=== PATIENT | male | born 1945 | race Caucasian/White ===

== ENCOUNTER → 2023-06-29 07:52 | Outpatient (CLI) | payer MEDICARE, OTHER, SELFPAY ==
[2023-06-29 08:56] LABS: Add Manual Diff / Slide Review NO; Basophils Absolute Auto 0 /uL (0-100); Basophils Percent Auto 0.9 % (0-2); Eosinophils Absolute Auto 200 /uL (0-450); Eosinophils Percent Auto 3.7 % (2-4); Hematocrit 40.2 % (41-53); Hemoglobin 13.8 g/dL (13.5-17.5); Lymphocytes Absolute Auto 1000 /uL (1100-4500); Mean Corpuscular HGB Conc 34.3 % (30-36); Mean Corpuscular Hemoglobin 31.1 PG (26-34); Mean Corpuscular Volume 90.7 fL (80-100); Monocytes Absolute Auto 600 /uL (0-900); Monocytes Percent Auto 11.8 % (3-14); Neutrophils Absolute Auto 3100 /uL (1500-7000); Neutrophils Percent Auto 63.6 % (50-75); Platelet Count 230 X10^3/uL (150-400); Red Blood Cell Count 4.43 X10^6/uL (4.5-5.9); Red Cell Distribution Width 13.7 % (11.6-14.8); White Blood Cell Count 4.9 X10^3/uL (4.5-11.0)
[2023-06-29 09:03] LABS: Hemoglobin A1C% w Est Avg Glu 5.5 % (4.0-6.0)
[2023-06-29 09:16] LABS: Alanine Aminotransferase 32 IU/L (<50); Albumin 4.1 g/dL (3.5-5.0); Albumin Globulin Ratio 1.5 (1.0-2.8); Alkaline Phosphatase 62 U/L (38-126); Aspartate Aminotransferase 32 IU/L (17-59); BUN Creatinine Ratio 18.6 (6-22); Bilirubin Total 0.8 mg/dL (0.2-1.3); Blood Urea Nitrogen 11 mg/dL (9-20); Calcium 8.7 mg/dL (8.4-10.2); Carbon Dioxide 22 mmol/L (22-32); Chloride 105 mmol/L (98-107); Cholesterol 149 mg/dL (140-199); Estimated Glomerular Filt Rate > 60 mL/min (>60); Globulin 2.7 g/dL (1.7-4.1); Glucose 106 mg/dL (80-110); HDL Cholesterol 50 mg/dL (40-60); HEMOLYSIS < 15 (0-50); LDL Cholesterol Calculated 81 mg/dL (<100); Magnesium 2.1 mg/dL (1.6-2.3); Potassium 3.8 mmol/L (3.4-5.1); Sodium 136 mmol/L (137-145); Total Protein 6.8 g/dL (6.3-8.2); Triglycerides 92 mg/dL (35-150)
== END ==
PROVIDERS: Referring Provider Internal Medicine Clinical Cardiac Electrophysiology; Visit Provider Internal Medicine Clinical Cardiac Electrophysiology
DX: E11.9 Type 2 diabetes mellitus without complications (principal); I10 Essential (primary) hypertension
CPT/HCPCS: 36415; 80053; 80061; 83036; 83735; 85025

== ENCOUNTER 2023-07-09 10:15 | Emergency (ER) | payer MEDICARE, OTHER, SELFPAY ==
[2023-07-09] VITALS (35 sets, daily range): BP systolic 95–151; BP diastolic 57–105; PULSE 59–137; RESP 12–26; TEMP 35.8; O2SAT 93–100; BMI 27.3
--- NOTE | 2023-07-09 10:20 | DI.RAD.S_ITS ---
PROCEDURE: XR CHEST 1V INDICATIONS: chest pain TECHNIQUE: One view of the chest was acquired. COMPARISON: None. FINDINGS: Surgical changes and devices: There is a leadless cardiac pacing moderate device. Lungs and pleura: Left basilar opacity may be pneumonia or atelectasis. No pleural effusions or pneumothorax. Mediastinum: Mediastinal contours appear normal. Heart size is normal. Bones and chest wall: No suspicious bony lesions. Overlying soft tissues appear unremarkable. IMPRESSION: Left basilar pneumonia or atelectasis. Dictated by: Chaparro Castelan M.D. on 07/09/2023 at 10:59 Approved by: Chaparro Castelan M.D. on 07/09/2023 at 11:01
[2023-07-09 10:41] LABS: Add Manual Diff / Slide Review NO; Basophils Absolute Auto 0 /uL (0-100); Basophils Percent Auto 0.6 % (0-2); Eosinophils Absolute Auto 200 /uL (0-450); Eosinophils Percent Auto 2.4 % (2-4); Hematocrit 46.6 % (41-53); Hemoglobin 16.1 g/dL (13.5-17.5); Lymphocytes Absolute Auto 1200 /uL (1100-4500); Lymphocytes Percent Auto 17.6 % (25-40); Mean Corpuscular HGB Conc 34.5 % (30-36); Mean Corpuscular Hemoglobin 31.6 PG (26-34); Mean Corpuscular Volume 91.6 fL (80-100); Monocytes Absolute Auto 700 /uL (0-900); Monocytes Percent Auto 10.6 % (3-14); Neutrophils Absolute Auto 4600 /uL (1500-7000); Neutrophils Percent Auto 68.8 % (50-75); Platelet Count 250 X10^3/uL (150-400); Red Blood Cell Count 5.09 X10^6/uL (4.5-5.9); Red Cell Distribution Width 13.9 % (11.6-14.8); White Blood Cell Count 6.6 X10^3/uL (4.5-11.0)
[2023-07-09 10:49] LABS: PTT Partial Thromboplastin Tim 35 SECONDS (26-36)
[2023-07-09 10:55] LABS: Alanine Aminotransferase 37 IU/L (<50); Albumin 4.7 g/dL (3.5-5.0); Albumin Globulin Ratio 1.6 (1.0-2.8); Alkaline Phosphatase 75 U/L (38-126); Aspartate Aminotransferase 37 IU/L (17-59); BUN Creatinine Ratio 17.4 (6-22); Blood Urea Nitrogen 12 mg/dL (9-20); Calcium 9.3 mg/dL (8.4-10.2); Carbon Dioxide 23 mmol/L (22-32); Chloride 105 mmol/L (98-107); Creatine Kinase 119 U/L (55-170); Estimated Glomerular Filt Rate > 60 mL/min (>60); Glucose 98 mg/dL (80-110); HEMOLYSIS 16 (0-50); Lipase 87 U/L (23-300); Magnesium 2.4 mg/dL (1.6-2.3); Potassium 4.1 mmol/L (3.4-5.1); Sodium 138 mmol/L (137-145); Total Protein 7.7 g/dL (6.3-8.2)
[2023-07-09 11:06] LABS: Troponin I 0.012 ng/mL (0.01-0.034)
[2023-07-09] MEDS: SODIUM CHLORIDE 0.9% 1,000 ML 1000 ML IV ×2 (14:00→16:01)
[2023-07-09 14:08] LABS: Appearance Urine UA CLEAR; Bilirubin Urine UA NEGATIVE (NEGATIVE); Color Urine UA YELLOW; Glucose Urine UA NEGATIVE (Negative); Ketones Urine UA NEGATIVE (NEGATIVE); Leukocyte Esterase Urine UA NEGATIVE (NEGATIVE); Nitrite Urine UA NEGATIVE (Negative); Occult Blood Urine UA NEGATIVE (Negative); Protein Urine UA NEGATIVE (Negative); Specific Gravity Urine UA <=1.005 (1.000-1.035); Urobilinogen Urine UA 0.2 E.U./dL (0.2); pH Urine UA 6.5 (4.5-8.0)
[2023-07-09 14:10] LABS: Bacteria Urine None Seen; Culture Indicated Urine Cult Not Indicated; RBC Urine None Seen (0-5/HPF); Squamous Epithelial Cell Urine None Seen (0-5/HPF); Urine Comments Microscopic Normal; WBC Urine None Seen (0-5/HPF)
--- NOTE | 2023-07-09 14:25 | ED_ITS ---
HPI - Arrhythmia/Palpitations General Chief Complaint: Arrhythmia/Palpitations Stated Complaint: afib since last night Time Seen by Provider: 07/09/23 13:57 Source: patient Mode of arrival: Ambulatory History of Present Illness HPI narrative: This is a 77-year-old male anticoagulated on apixaban daily for atrial fibrillation with history of hypertension, dyslipidemia, ulcerative colitis with complaint of atrial fibrillation since last night. Patient states he can feel it is irregular. He states his last episode was about 9 or 10 months ago they have typically been very short but he has had 1 prior cardioversion in the emergency department. He states he is felt lightheaded today. No syncope. No chest pain or pressure, no shortness of breath, no cold cough or congestion, no fevers or chills. No nausea or vomiting. No swelling in his extremities. No diarrhea, no issues with bowel movements, no dysuria urgency or frequency. Has not been having frequent episodes. His home medications are apixaban, amlodipine, atorvastatin, fluticasone, mesalamine, metoprolol and sildenafil. States he takes the amlodipine in the morning and his metoprolol in the evening. No known drug allergies. No tobacco, has a alcoholic drink every couple days, no illicit. No recent alcohol in the last few days. Primary care is Dr. Bullock in [place], his heel reducer as that [facility] Dr. Chavez but he splits his time between there and [place] where he sees a Dr. Watson. Patient notes he is had prior cardioversion no issues with anesthesia or sedation he does get he states colonoscopies fairly regularly. Related Data Home Medications Medication Instructions Recorded Confirmed amlodipine 5 mg tablet 5 mg PO DAILY 06/15/23 06/15/23 apixaban 5 mg tablet (Eliquis) 5 mg PO BID 06/15/23 06/15/23 atorvastatin 40 mg tablet 40 mg PO DAILY 06/15/23 06/15/23 fluticasone propionate 50 spray intranasal 06/15/23 06/15/23 mcg/actuation nasal spray,suspension mesalamine 1.2 gram tablet,delayed 2.4 g PO DAILY 06/15/23 06/15/23 release metoprolol succinate 25 mg 12.5 mg PO DAILY 06/15/23 06/15/23 tablet,extended release 24 hr sildenafil 100 mg tablet 0 mg PO 06/15/23 06/15/23 Allergies Allergy/AdvReac Type Severity Reaction Status Date / Time No Known Drug Allergies Allergy Verified 07/09/23 10:18 Review of Systems Review of Systems ROS Unobtainable: All systems reviewed & are unremarkable except as noted in HPI and below Patient History Social History Smoking Status: Unknown if ever smoked Smoking Status: Unknown if ever smoked alcohol intake frequency: holidays/special occasions only Substance Use Type: does not use Exam Narrative Exam Narrative: GENERAL: Alert and oriented x three, mild distress. HEENT: Head normocephalic, atraumatic, EOMI, pupils reactive, face symmetric, moist mucous membranes NECK: Supple, full range of motion CARDIOVASCULAR: Irregularly irregular rate and rhythm without murmurs, rubs or gallops. No JVD. No swelling bilateral lower extremities. RESPIRATORY: Breath sounds equal bilaterally, no wheezes rales or rhonchi. No tachypnea. No accessory muscle use. Speaks in full sentences. ABDOMEN: Soft, nontender. Normoactive bowel sounds all 4 quadrants. No guarding or rebound, rigidity, no mass : No CVA tenderness EXTREMITIES: Normal range of motion, no clubbing or edema. Neurovascularly intact NEUROLOGICAL: Cranial nerves II through XII grossly intact. Moving all extremities SKIN: Warm, dry, no petechiae, no rashes or lesions. Initial Vital Signs Initial Vital Signs: Vital Signs Temperature 96.5 F L 07/09/23 10:18 Pulse Rate 73 07/09/23 10:18 Respiratory Rate 15 07/09/23 10:18 Blood Pressure 120/76 07/09/23 10:18 Pulse Oximetry 100 07/09/23 10:18 Oxygen Delivery Method Room Air 07/09/23 10:18 Procedures Cardioversion Consent Signed: Yes Indication: Atrial fibrillation with rapid ventricular response. Patient does have some hypotension intermittently Stability: Stable Number of attempts (shocks): 1 Joules used: 120 Cardiac rhythm post-cardioversion: NSR Procedural Sedation Consent signed: Yes Time out performed: Yes Indication: cardioversion ASA Class: II Mallampati Airway Classification: Class II Time of Last PO Intake: 20:00 (yesterday) Preparation: property assessment monitor applied, pulse oximeter, capnometry used, supplemental O2 applied, suction/airway equipment at bedside and IV secured IV Etomidate dose (mg): 8 ED Sedation Level: Moderate (Concious) Patient Tolerated Procedure: Well and No complications Complications: none Course Orders Ordered: ED Orders 07/09/23 10:20 XR chest 1V Stat EKG-12 Lead Stat 07/09/23 10:30 Complete Blood Count AUTO DIFF Stat Comprehensive Metabolic Panel Stat Lipase Stat Magnesium Stat PTT Partial Thromboplastin Reagan Stat Prothrombin Time INR Stat Troponin & CK Cardiac Panel Stat 07/09/23 14:03 Urinalysis and Microscopic Stat 07/09/23 16:23 EKG-12 Lead Routine Discontinued Medications Etomidate (Etomidate 2 Mg/Ml 10 Ml Vial) 8 mg IV NOW ONE Stop: 07/09/23 15:58 Last Admin: 07/09/23 16:00 Dose: 8 mg Documented By: MIRELLA Sodium Chloride (Normal Saline 0.9%) 1,000 mls @ 1,000 mls/hr IV BOLUS ONE Stop: 07/09/23 14:56 Last Infusion: 07/09/23 16:02 Dose: 0 mls/hr Documented By: Admin: 07/09/23 14:00 Dose: 1,000 mls/hr Documented By: MIRELLA Sodium Chloride (Normal Saline 0.9%) 1,000 mls @ 1,000 mls/hr IV BOLUS ONE Stop: 07/09/23 16:32 Last Infusion: 07/09/23 17:08 Dose: 0 mls/hr Documented By: Admin: 07/09/23 16:01 Dose: 1,000 mls/hr Documented By: MIRELLA Vital Signs Vital signs: Vital Signs - 8 hr 07/09/23 11:00 07/09/23 11:00 07/09/23 11:20 Pulse Rate 97 H 99 H Respiratory Rate 19 21 Blood Pressure 110/57 L Pulse Oximetry 95 97 07/09/23 11:20 07/09/23 11:30 07/09/23 11:30 Pulse Rate 106 H Respiratory Rate 18 Blood Pressure 118/77 115/79 Pulse Oximetry 96 07/09/23 12:00 07/09/23 12:00 07/09/23 12:30 Pulse Rate 104 H Respiratory Rate 13 Blood Pressure 113/76 117/66 Pulse Oximetry 97 07/09/23 12:30 07/09/23 12:47 07/09/23 12:47 Pulse Rate 95 H 112 H Respiratory Rate 17 22 Blood Pressure 126/68 Pulse Oximetry 97 07/09/23 13:00 07/09/23 13:00 07/09/23 13:30 Pulse Rate 107 H Respiratory Rate 16 Blood Pressure 119/60 98/63 Pulse Oximetry 96 07/09/23 13:30 07/09/23 14:00 07/09/23 14:00 Pulse Rate 98 H 103 H Respiratory Rate 15 16 Blood Pressure 102/68 Pulse Oximetry 97 97 07/09/23 14:03 07/09/23 14:03 07/09/23 14:30 Pulse Rate 114 H Respiratory Rate 18 Blood Pressure 118/73 117/74 Pulse Oximetry 97 07/09/23 14:30 07/09/23 15:00 07/09/23 15:00 Pulse Rate 101 H 111 H Respiratory Rate 16 15 Blood Pressure 95/73 Pulse Oximetry 98 97 07/09/23 16:54 07/09/23 15:30 07/09/23 15:31 Pulse Rate 59 L 119 H Respiratory Rate 18 18 Blood Pressure 115/73 123/84 Pulse Oximetry 96 96 07/09/23 15:31 07/09/23 15:42 07/09/23 15:42 Pulse Rate 120 H 127 H Respiratory Rate 17 18 Blood Pressure 112/71 Pulse Oximetry 96 93 07/09/23 15:45 07/09/23 15:45 07/09/23 15:50 Pulse Rate 116 H 129 H Respiratory Rate 20 19 Blood Pressure 116/64 Pulse Oximetry 94 95 07/09/23 15:50 07/09/23 15:55 07/09/23 15:55 Pulse Rate 126 H Respiratory Rate 21 Blood Pressure 98/63 106/66 Pulse Oximetry 94 07/09/23 16:00 07/09/23 16:00 07/09/23 16:05 Pulse Rate 137 H Respiratory Rate 20 Blood Pressure 102/73 142/105 H Pulse Oximetry 95 07/09/23 16:05 07/09/23 16:09 07/09/23 16:09 Pulse Rate 119 H 122 H Respiratory Rate 24 26 H Blood Pressure 113/73 Pulse Oximetry 96 93 07/09/23 16:10 07/09/23 16:10 07/09/23 16:13 Pulse Rate 117 H 85 Respiratory Rate 21 25 H Blood Pressure 128/62 Pulse Oximetry 96 95 07/09/23 16:13 07/09/23 16:15 07/09/23 16:15 Pulse Rate 68 Respiratory Rate 25 H Blood Pressure 144/68 H 151/86 H Pulse Oximetry 93 07/09/23 16:20 07/09/23 16:20 07/09/23 16:25 Pulse Rate 63 65 Respiratory Rate 25 H 23 Blood Pressure 137/83 Pulse Oximetry 94 93 07/09/23 16:25 07/09/23 16:30 07/09/23 16:30 Pulse Rate 65 Respiratory Rate 23 Blood Pressure 121/76 111/68 Pulse Oximetry 95 07/09/23 16:35 07/09/23 16:35 07/09/23 16:40 Pulse Rate 70 65 Respiratory Rate 16 17 Blood Pressure 115/69 Pulse Oximetry 94 95 07/09/23 16:40 07/09/23 16:45 07/09/23 16:45 Pulse Rate 61 Respiratory Rate 19 Blood Pressure 113/70 118/74 Pulse Oximetry 95 07/09/23 16:50 07/09/23 16:50 Pulse Rate 64 Respiratory Rate 12 Blood Pressure 115/73 Pulse Oximetry 96 MDM - Arrhythmia/Palpitations Lab Data 07/09/23 10:30 07/09/23 10:30 Labs: Lab Results 07/09/23 07/09/23 07/09/23 Range/Units 10:30 10:30 10:30 WBC 6.6 (4.5-11.0) X10^3/uL RBC 5.09 (4.5-5.9) X10^6/uL Hgb 16.1 (13.5-17.5) g/dL Hct 46.6 (41-53) % MCV 91.6 (80-100) fL MCH 31.6 (26-34) PG MCHC 34.5 (30-36) % RDW 13.9 (11.6-14.8) % Plt Count 250 (150-400) X10^3/uL Neut % (Auto) 68.8 (50-75) % Lymph % (Auto) 17.6 L (25-40) % Brooke % (Auto) 10.6 (3-14) % Eos % (Auto) 2.4 (2-4) % Baso % (Auto) 0.6 (0-2) % Neut # (Auto) 4600 (7589-6862) /uL Lymph # (Auto) 1200 (3620-8354) /uL Brooke # (Auto) 700 (0-900) /uL Eos # (Auto) 200 (0-450) /uL Baso # (Auto) 0 (0-100) /uL PT 12.0 (10.1-12.7) SECONDS INR 1.0 (0.9-1.3) APTT 35 (26-36) SECONDS Sodium 138 (137-145) mmol/L Potassium 4.1 (3.4-5.1) mmol/L Chloride 105 (98-107) mmol/L Carbon Dioxide 23 (22-32) mmol/L BUN 12 (9-20) mg/dL Creatinine 0.69 (0.66-1.25) mg/dL Estimated GFR > 60 (>60) mL/min BUN/Creatinine Ratio 17.4 (6-22) Glucose 98 (80-110) mg/dL Calcium 9.3 (8.4-10.2) mg/dL Magnesium 2.4 H (1.6-2.3) mg/dL Total Bilirubin 1.0 (0.2-1.3) mg/dL AST 37 (17-59) IU/L ALT 37 (<50) IU/L Alkaline Phosphatase 75 (38-126) U/L Total Creatine Kinase 119 (55-170) U/L Troponin I 0.012 (0.01-0.034) ng/mL Total Protein 7.7 (6.3-8.2) g/dL Albumin 4.7 (3.5-5.0) g/dL Globulin 3.0 (1.7-4.1) g/dL Albumin/Globulin Ratio 1.6 (1.0-2.8) Lipase 87 (23-300) U/L Urine Color Urine Appearance Urine pH (4.5-8.0) Ur Specific [place] (1.000-1.035) Urine Protein (Negative) Urine Glucose (UA) (Negative) g/dL Urine Ketones (NEGATIVE) Urine Occult Blood (Negative) Urine Nitrate (Negative) Urine Bilirubin (NEGATIVE) Urine Urobilinogen (0.2) E.U./dL Ur Leukocyte Esterase (NEGATIVE) Urine RBC (0-5/HPF) Urine WBC (0-5/HPF) Ur Squamous Epith Cells (0-5/HPF) Urine Bacteria (None) Ur Culture Indicated? Micro UA Comment 07/09/23 Range/Units 14:03 WBC (4.5-11.0) X10^3/uL RBC (4.5-5.9) X10^6/uL Hgb (13.5-17.5) g/dL Hct (41-53) % MCV (80-100) fL MCH (26-34) PG MCHC (30-36) % RDW (11.6-14.8) % Plt Count (150-400) X10^3/uL Neut % (Auto) (50-75) % Lymph % (Auto) (25-40) % Brooke % (Auto) (3-14) % Eos % (Auto) (2-4) % Baso % (Auto) (0-2) % Neut # (Auto) (0455-4814) /uL Lymph # (Auto) (0711-5472) /uL Brooke # (Auto) (0-900) /uL Eos # (Auto) (0-450) /uL Baso # (Auto) (0-100) /uL PT (10.1-12.7) SECONDS INR (0.9-1.3) APTT (26-36) SECONDS Sodium (137-145) mmol/L Potassium (3.4-5.1) mmol/L Chloride (98-107) mmol/L Carbon Dioxide (22-32) mmol/L BUN (9-20) mg/dL Creatinine (0.66-1.25) mg/dL Estimated GFR (>60) mL/min BUN/Creatinine Ratio (6-22) Glucose (80-110) mg/dL Calcium (8.4-10.2) mg/dL Magnesium (1.6-2.3) mg/dL Total Bilirubin (0.2-1.3) mg/dL AST (17-59) IU/L ALT (<50) IU/L Alkaline Phosphatase (38-126) U/L Total Creatine Kinase (55-170) U/L Troponin I (0.01-0.034) ng/mL Total Protein (6.3-8.2) g/dL Albumin (3.5-5.0) g/dL Globulin (1.7-4.1) g/dL Albumin/Globulin Ratio (1.0-2.8) Lipase (23-300) U/L Urine Color Yellow Urine Appearance Clear Urine pH 6.5 (4.5-8.0) Ur Specific E[place] <=1.005 (1.000-1.035) Urine Protein Negative (Negative) Urine Glucose (UA) Negative (Negative) g/dL Urine Ketones Negative (NEGATIVE) Urine Occult Blood Negative (Negative) Urine Nitrate Negative (Negative) Urine Bilirubin Negative (NEGATIVE) Urine Urobilinogen 0.2 (0.2) E.U./dL Ur Leukocyte Esterase Negative (NEGATIVE) Urine RBC None seen (0-5/HPF) Urine WBC None seen (0-5/HPF) Ur Squamous Epith Cells None seen (0-5/HPF) Urine Bacteria None seen (None) Ur Culture Indicated? Cult not indicated Micro UA Comment Microscopic normal Imaging Data Chest x-ray: Radiologist's Impresson: Close Chest X-Ray (Signed) Chaparro Castelan - 07/09/23 [place] [address] XRay Report Signed Patient: Shawn Colindres MR#: [id number] : 1945 Acct:[id number] Age/Sex: 77 / M Date of Service: 07/09/23 Loc: ED Accession Number: [id number] ?? Procedure: XR chest 1V Ordering Provider: Ally Villarreal D.O. PROCEDURE:? XR CHEST 1V ? INDICATIONS:? chest pain ? TECHNIQUE:? One view of the chest was acquired.? ? COMPARISON:? None. ? FINDINGS:? ? Surgical changes and devices:? There is a leadless cardiac pacing moderate device.? ? Lungs and pleura:? Left basilar opacity may be pneumonia or atelectasis.? No pleural effusions or pneumothorax.? ? Mediastinum:? Mediastinal contours appear normal.? Heart size is normal.? ? Bones and chest wall:? No suspicious bony lesions.? Overlying soft tissues appear unremarkable.? ? ? IMPRESSION:? Left basilar pneumonia or atelectasis. ? ? Dictated by: Chaparro Castelan M.D. on 07/09/2023 at 10:59 ? ? Approved by: Chaparro Castelan M.D. on 07/09/2023 at 11:01?? ECG Data Attestation: I personally reviewed and interpreted this ECG as follows: Prior ECG tracings: not available for review Interpretation: AFib, rate of 94 QRS [address] No [address] elevation or depression patient does not have priors for comparison. EKG 2. Sinus rhythm rate of 63 MD 156 QRS is [address] QTC [address] acute [address] elevation depression patient does have inverted T-wave in lead 3 not appreciated other leads no elevation. MDM Narrative Medical decision making narrative: This is a 77-year-old male with history of atrial fibrillation in RVR, patient's heart rate has bumped up over time, dropped his pressure a little bit his CBC shows no acute changes, coags are appropriate, creatinine is normal with a potassium of 4.1, Mag is slightly elevated 2.4, otherwise normal BUN and t roponin was negative. Chest x-ray shows possible pneumonia versus atelectasis. After discussion with patient he is not had any infectious type symptoms or pneumonia cough or other changes. Suspect more atelectasis. UA is negative with specific gravity of 1.005. Patient does not have prior EKGs available for comparison but no acute ST elevation. After discussion with patient and family at bedside legs for conscious sedation and cardioversion here in the emergency department he does seem like an appropriate candidate he has been taking his apixaban for several years he denies any missed doses. Appears that he would like benefit. Patient tolerated procedure well, received etomidate 8 mg, cardioverted with 120 joules x1 to normal sinus rhythm with rate in the 60s which patient states is normal baseline. Patient monitored afterwards feeling much improved able to ambulate need drink in the department and discharged home with his . Did discuss with patient and family no driving or hazardous activities. Discharge Plan Departure Patient Disposition: Home Clinical Impression: Atrial fibrillation with rapid ventricular response Instructions: DI for Atrial Fibrillation Activity Restrictions/Additional Instructions: Please follow-up with your physician for recheck. Continue to take your home medications as prescribed. Please return for new or worsening symptoms, persistent or recurrent atrial fibrillation, fast heart rate, lightheadedness or passing out, new chest pain, shortness of breath, new swelling in her extremities or other new or concerning changes. Prescriptions: No Action Eliquis 5 mg tablet 5 mg PO BID amlodipine 5 mg tablet 5 mg PO DAILY metoprolol succinate 25 mg tablet extended release 24 hr 12.5 mg PO DAILY mesalamine 1.2 gram tablet,delayed release (DR/EC) 2.4 g PO DAILY sildenafil 100 mg tablet 0 mg PO fluticasone propionate 50 mcg/actuation spray,suspension intranasal atorvastatin 40 mg tablet 40 mg PO DAILY Stand Alone Forms: Patient Portal/API
[2023-07-09] MEDS: ETOMIDATE 2 MG/ML 10 ML VIAL 8 MG IV (16:00)
== END 2023-07-09 17:19 | disposition home or self-care (01) ==
PROVIDERS: Emergency Provider Emergency Medicine
DX: I48.20 Chronic atrial fibrillation, unspecified (principal); R07.9 Chest pain, unspecified; Z79.01 Long term (current) use of anticoagulants; Z79.899 Other long term (current) drug therapy; R79.89 Other specified abnormal findings of blood chemistry
CPT/HCPCS: 36415; 71045; 80053; 81001; 82550; 83690; 83735; 84484; 85025; 85610; 85730; 92960; 93005; 93010; 96360; 96361; 99152; 99153; 99285

== ENCOUNTER → 2024-07-03 14:18 | Outpatient (CLI) | payer MEDICARE, OTHER, SELFPAY ==
[2024-07-03 17:13] LABS: Prostate Specific Antigen < 0.064 ng/mL (0.10-4.00)
== END ==
DX: C61 Malignant neoplasm of prostate (principal)
CPT/HCPCS: 36415; 84153